=== PATIENT | female | born 1960 | race Caucasian/White ===

== ENCOUNTER 2018-06-13 17:30 | Emergency (ER) | payer SELFPAY ==
[~2018-06-13] VITALS: Ht 154.9 cm; Wt 58.1 kg
[2018-06-13 17:30] VITALS: BP 102/63
== END 2018-06-13 18:02 | disposition home or self-care (01) ==
LOC: ER 17:34
DX: N64.4 Mastodynia (principal); M25.511 Pain in right shoulder; E03.9 Hypothyroidism, unspecified; Z98.890 Other specified postprocedural states; W18.39XA Other fall on same level, initial encounter; Y93.89 Activity, other specified; Y92.89 Other specified places as the place of occurrence of the external cause; Y99.8 Other external cause status
CPT/HCPCS: Z7502